=== PATIENT | male | born 1985 | race Hispanic/Latino ===

== ENCOUNTER 2022-03-03 01:09 | Inpatient (IN) | payer OTHER, BC ==
[2022-03-03] MEDS ORDERED: Fentanyl 100 MCG/2 ML VIAL ONE (01:19)
[2022-03-03] MEDS ORDERED: CEFAZOLIN 1 GM VIAL ONE (01:20)
[2022-03-03] MEDS ORDERED: Boostrix 0.5 ML (Tdap) VIAL ONE (01:20)
[2022-03-03] MEDS ORDERED: Midazolam HCl 2 mg/2 ml Vial ONE ×2 (01:24→02:40)
[2022-03-03] MEDS ORDERED: Fentanyl CADD 100 ML IV SCH (01:30)
[2022-03-03 01:31] LABS: #Eosinphils 0.1 thou/uL (0.0-0.7); #Monocytes 0.7 thou/uL (0.11-0.59); #Neutrophils 9.2 thou/uL (1.40-6.50); %Basophils 0.1 % (0.0-1.0); %Eosinophils 0.6 % (0.0-10.0); %Lymphocytes 16.7 % (21.0-51.0); %Monocytes 5.8 % (0.0-10.0); %Neutrophils 76.8 % (42.0-75.0); Hemoglobin 12.5 g/dL (14.0-18.0); Mean Corpuscular HGB CONC 35.2 g/dL (32.0-36.0); Mean Corpuscular Hemoglobin 34.7 pg (27.0-31.0); Mean Corpuscular Volume 98.4 fL (78.0-98.0); Mean Platelet Volume 7.6 fL (7.4-10.4); Platelet Count 311 thou/uL (130-400); RBC Distribution Width 12.5 % (11.5-14.5); Red Blood Cell (RBC) Count 3.59 mill/uL (4.70-6.10)
[2022-03-03 01:51] LABS: Acetaminophen Less than 10.0 mcg/mL (10.0-30.0); Alcohol 244 mg/dL (Less than 10); CK (CPK) 630 U/L (30-200); Salicylate Less than 8.0 mg/dL (15.0-30.0)
[2022-03-03 01:56] LABS: Amphetamine Not Detected (NotDetected); Barbiturates Screen Not Detected (NotDetected); Benzodiazepine Screen Not Detected (NotDetected); Cocaine Metabolite Screen Not Detected (NotDetected); Methadone Not Detected (NotDetected); Methamphetamine Not Detected (NotDetected); Opiate Screen Not Detected (NotDetected); Oxycodone Screen Not Detected (NotDetected); Phencyclidine (PCP) Not Detected (NotDetected); THC/Cannabinoid Screen Detected (NotDetected); Tricyclic Screen Not Detected (NotDetected)
[2022-03-03 01:56] LABS: PTT 23.8 sec (22.9-36.1); Prothrombin Time 13.6 sec (12.0-14.7)
[2022-03-03 01:57] LABS: Bacteria/HPF 1+ HPF (None Seen); Bilirubin Negative (Negative); Blood, Urine 3+ (Negative); Clarity Clear (Clear); Glucose, Urine (Dipstick) Normal (Negative); Ketone, Urine Negative (Negative); Leukocyte Negative Leu/uL (Negative); Nitrite Negative (Negative); Protein, Urine (Dipstick) 20 mg/dL (Neg-Trace); Specific Gravity, Urine 1.011 (1.002-1.036); Squamous Epithelial None Seen HPF (0-3); Urobilinogen Normal mg/dL (Less than 2); WBC/HPF 0-3 HPF (0-3); pH, Urine 6.5 (5.0-9.0)
[2022-03-03 01:59] LABS: ALT (SGPT) 43 U/L (8-55); AST (SGOT) 50 U/L (5-34); Albumin 4.2 g/dL (3.5-5.0); Alkaline Phosphatase 61 U/L (40-110); Anion Gap 19 mmol/L (10-20); BUN (Urea Nitrogen) 17 mg/dL (8.9-20.6); Bilirubin, Total 0.8 mg/dL (0.2-1.2); CRP (Inflammatory) Less than 0.50 mg/dL (= or < 0.5); Calc. Creatinine Clearance 0 mL/min (70-130); Calcium 8.4 mg/dL (7.8-10.44); Carbon Dioxide 15 mmol/L (22-29); Chloride 109 mmol/L (98-107); Estimated GFR 85; Globulin 2.4 g/dL (2.4-3.5); Glucose 103 mg/dL (70-105); Potassium 4.1 mmol/L (3.5-5.1); Protein, Total 6.6 g/dL (6.0-8.3); Sodium 139 mmol/L (136-145)
[2022-03-03 02:03] LABS: Actual Bicarbonate (HCO3v) 18 mEq/L (22-28); Analyzer IN Cardio ER; Base Excess -6.8 mEq/L (-2.0 to +3.0); Chloride (VBG) 109 mmol/L (98-106); Hemoglobin (Hb) 13.4 g/dL (13.2-17.3); Potassium (VBG) 4.43 mmol/L (3.70-5.30); Sodium 138.2 mmol/L (133-146); pH (venous) 7.36 (7.32-7.43)
[2022-03-03] MEDS ORDERED: Dextrose 50% Abboject 50 ML SYRINGE SLOW IVP PRN (02:03)
[2022-03-03] MEDS ORDERED: hydrALAZINE 20 MG/ML VIAL SLOW IVP PRN (02:03)
[2022-03-03] MEDS ORDERED: Insulin Regular 300 UNITS/3 ML VIAL SC PRN (02:03)
[2022-03-03] MEDS ORDERED: Dextrose 5% in Water 1,000 ML IV PRN (02:03)
[2022-03-03] MEDS ORDERED: Ondansetron PF 4 MG/2 ML Vial IVP PRN (02:03)
[2022-03-03 02:11] LABS: SARS-CoV-2 NAA Rapid Test Not Detected (NotDetected)
[2022-03-03] MEDS ORDERED: Ventilator Sedation Protocol 1 EACH FS SCH (02:15)
[2022-03-03] MEDS ORDERED: Lidocaine 1% (PF) 30 ML VIAL SC SCH (02:15)
[2022-03-03] MEDS ORDERED: Propofol 1,000 MG/100 ML VIAL IV PRN (02:15)
[2022-03-03] MEDS ORDERED: Sodium Chloride 0.9% 1,000 ML IV SCH (02:15)
[2022-03-03] MEDS ORDERED: Lidocaine 1% PF 5 ML VIAL ONE (02:30)
[2022-03-03] MEDS ORDERED: Lidocaine 1% MPF 2 ML VIAL ONE (02:31)
[2022-03-03] MEDS ORDERED: Propofol 1,000 MG/100 ML VIAL IV ONE (02:42)
[2022-03-03 02:52] LABS: Actual Bicarbonate (HCO3a) 17.8 mEq/L (22-28); Analyzer IN Cardio ER; Calcium, Ionized (arterial) 1.13 mmol/L (1.12-1.30); Carboxyhemoglobin (COHb) 0.3 gm% (0.0-3.0); Hemoglobin (Hb) 12.8 g/dL (14.0-18.0); O2 Tension (PaO2), arterial 435.3 mmHg (80.0-100.0); pH, Arterial 7.39 (7.35-7.45)
[2022-03-03 02:58] LABS: Magnesium 2.3 mg/dL (1.6-2.6); Phosphorus 3.5 mg/dL (2.3-4.7)
[2022-03-03 04:56] VITALS: BMI 26.2
[2022-03-03 05:24] LABS: Lactic Acid 3.7 mmol/L (0.5-2.2)
[2022-03-03] MEDS ORDERED: Acetaminophen 650 MG/20.3 ML UDCUP PER TUBE SCH (06:00)
[2022-03-03] MEDS ORDERED: Acetaminophen 500 MG TAB PO SCH (06:00)
[2022-03-03] MEDS: Oxazepam 10 MG CAP PO SCH ×3 (06:46→21:28)
[2022-03-03] MEDS ORDERED: Famotidine/PF 20 mg/2ml Vial SLOW IVP SCH (09:00)
[2022-03-03] MEDS: Polyethylene Glycol 3350 17 GM Packet PO SCH (09:01)
[2022-03-03] MEDS: Sodium Chloride 0.9% 1,000 ML IV SCH ×2 (09:01→11:35)
[2022-03-03] MEDS: Folic Acid 1 MG TAB PO SCH (09:02)
[2022-03-03] MEDS: Multivitamin W/ Minerals 1 TAB PO SCH (09:02)
[2022-03-03] MEDS: Senokot S 8.6-50 MG TAB PO SCH ×2 (09:02→21:28)
[2022-03-03] MEDS: Thiamine 100 MG TAB PO SCH (09:02)
[2022-03-03] MEDS: traMADol HCl 50 MG TAB PO SCH ×2 (12:15→18:18)
[2022-03-03] MEDS ORDERED: Cyclobenzaprine 10 MG TAB PO PRN (15:27)
[2022-03-03] MEDS ORDERED: Iopamidol-370 76% 500 ML 1 ML ONE (15:39)
[2022-03-03] MEDS: Ketorolac Tromethamine 30 MG/ML VIAL IVP SCH ×2 (16:23→21:28)
[2022-03-03] MEDS: Acetaminophen 325 MG TAB PO SCH (18:16)
[2022-03-03] MEDS: Gabapentin 300 MG CAP PO SCH (21:27)
[2022-03-03] MEDS: Famotidine 20 MG TAB PO SCH (21:28)
[2022-03-04] MEDS: traMADol HCl 50 MG TAB PO SCH ×3 (00:26→12:10)
[2022-03-04] MEDS: Acetaminophen 325 MG TAB PO SCH ×3 (00:27→12:10)
[2022-03-04] MEDS: Sodium Chloride 0.9% 1,000 ML IV SCH ×2 (02:36→12:13)
[2022-03-04] MEDS: Ketorolac Tromethamine 30 MG/ML VIAL IVP SCH ×2 (02:36→08:18)
[2022-03-04] MEDS: Oxazepam 10 MG CAP PO SCH ×2 (05:22→15:01)
[2022-03-04] MEDS: Famotidine 20 MG TAB PO SCH (08:16)
[2022-03-04] MEDS: Polyethylene Glycol 3350 17 GM Packet PO SCH (08:16)
[2022-03-04] MEDS: Folic Acid 1 MG TAB PO SCH (08:16)
[2022-03-04] MEDS: Gabapentin 300 MG CAP PO SCH ×2 (08:17→15:01)
[2022-03-04] MEDS: Thiamine 100 MG TAB PO SCH (08:17)
[2022-03-04] MEDS: Multivitamin W/ Minerals 1 TAB PO SCH (08:18)
[2022-03-04] MEDS: Senokot S 8.6-50 MG TAB PO SCH (08:35)
[2022-03-04] MEDS ORDERED: Losartan 25 MG TAB PO SCH (09:00)
[2022-03-04 09:37] LABS: Anion Gap 12 mmol/L (10-20); BUN (Urea Nitrogen) 18 mg/dL (8.9-20.6); Calc. Creatinine Clearance 116 mL/min (70-130); Calcium 8.2 mg/dL (7.8-10.44); Carbon Dioxide 23 mmol/L (22-29); Chloride 104 mmol/L (98-107); Estimated GFR 112; Glucose 94 mg/dL (70-105); Phosphorus 2.7 mg/dL (2.3-4.7); Potassium 4.1 mmol/L (3.5-5.1); Sodium 135 mmol/L (136-145)
[2022-03-04 09:49] LABS: #Eosinphils 0.2 thou/uL (0.0-0.7); #Lymphocytes 1.6 thou/uL (1.20-3.40); #Monocytes 0.6 thou/uL (0.11-0.59); #Neutrophils 4.2 thou/uL (1.40-6.50); %Basophils 0.6 % (0.0-1.0); %Eosinophils 2.5 % (0.0-10.0); %Monocytes 8.4 % (0.0-10.0); %Neutrophils 64.5 % (42.0-75.0); Hemoglobin 11.2 g/dL (14.0-18.0); Mean Corpuscular HGB CONC 32.3 g/dL (32.0-36.0); Mean Corpuscular Hemoglobin 32.7 pg (27.0-31.0); Mean Platelet Volume 7.6 fL (7.4-10.4); Platelet Count 286 thou/uL (130-400); RBC Distribution Width 12.5 % (11.5-14.5); Red Blood Cell (RBC) Count 3.41 mill/uL (4.70-6.10); White Blood Cell (WBC) Count 6.6 thou/uL (4.8-10.8)
[2022-03-04] MEDS ORDERED: Ibuprofen 800 MG TAB PO PRN (12:52)
[2022-03-04 14:05] VITALS: BP 115/71; TEMP 98.1
== END 2022-03-04 16:20 | disposition home or self-care (01) | DRG 208 ==
LOC: ERS 01:09 → CCU 02:03 → SURG A 17:44
PROVIDERS: ADMIT Surgery; ATTEND Surgery
PROC: 5A1935Z Respiratory Ventilation, Less than 24 Consecutive Hours (ICD-10-PCS; principal; 2022-03-03)
PROC: 0PSDXZZ Reposition Left Humeral Head, External Approach (ICD-10-PCS; 2022-03-03)
PROC: 0HQ1XZZ Repair Face Skin, External Approach (ICD-10-PCS; 2022-03-03)
DX: S27.321A Contusion of lung, unilateral, initial encounter (principal); J96.00 Acute respiratory failure, unspecified whether with hypoxia or hypercapnia; S42.292A Other displaced fracture of upper end of left humerus, initial encounter for closed fracture; S22.42XA Multiple fractures of ribs, left side, initial encounter for closed fracture; S43.005A Unspecified dislocation of left shoulder joint, initial encounter; S01.81XA Laceration without foreign body of other part of head, initial encounter; I10 Essential (primary) hypertension; F19.10 Other psychoactive substance abuse, uncomplicated; F10.129 Alcohol abuse with intoxication, unspecified; Z20.822 Contact with and (suspected) exposure to COVID-19; V47.5XXA Car driver injured in collision with fixed or stationary object in traffic accident, initial encounter; Y92.488 Other paved roadways as the place of occurrence of the external cause
CPT/HCPCS: 36415; 36416; 70450; 70486; 71045; 71260; 72125; 72170; 74177; 80048; 80053; 80306; 80307; 81003; 81015; 82550; 82805; 83605; 83735; 84100; 84484; 85025; 85610; 85730; 86140; 86850; 86900; 86901; 90715; 93005; 94002; 94640; 94760; G0390; J0690; J1885; J2250; J2704; J3010; J7050; J7620; Q9967; S0028; U0002

== ENCOUNTER 2022-03-26 13:35 | Outpatient (CLI) | payer BC, OTHER | END 2022-03-26 13:36 | disposition home or self-care (01) | LOC: SCSRAD 13:35 | PROVIDERS: ATTEND Surgery | DX: S22.42XA Multiple fractures of ribs, left side, initial encounter for closed fracture (principal); V89.2XXD Person injured in unspecified motor-vehicle accident, traffic, subsequent encounter | CPT/HCPCS: 71046 ==